=== PATIENT | female | born 1930 | race Caucasian/White ===

== ENCOUNTER → 2016-12-16 | Outpatient (CLI) | payer MEDICARE ==
[~2016-12-16] MED LIST: AMARYL2 M1 PO; AUGMENTIN875 MG PO; BACITRACIN OINT30 GM TOP; BENADRYL25 MG PO; CLEOCIN150 MG PO; COLCHICINE0.6 MG PO; COREG25 MG PO; CULTURELLE1 CAP; ELIQUIS2.5 MG; ELIQUIS2.5 MG PO; FEOSOL325 MG PO; GLUCOPHAGE1000 MG PO; GLUCOSE4 GM PO; LASIX20 MG PO; LEVAQUIN 250 M250 MG PO; NORCO 5-325 MG1 TAB PO; PENICILLIN V P250 MG PO; TYLENOL ARTHRI650 MG PO; TYLENOL325 MG PO; ZOCOR20 MG PO
== END | disposition disaster alternative care site (69) ==
LOC: LNHI 17:10
DX: I25.10 Atherosclerotic heart disease of native coronary artery without angina pectoris (principal); I50.32 Chronic diastolic (congestive) heart failure; E78.2 Mixed hyperlipidemia